=== PATIENT | male | born 1995 | race Two or more races ===

== ENCOUNTER 2023-01-22 09:54 | Emergency (ER) | payer MEDICAID ==
[~2023-01-22] VITALS: Ht 175.3 cm; Wt 90.7 kg
[2023-01-22 10:05] VITALS: BP 132/72; PULSE 74; RESP 16; O2SAT 99
[2023-01-22 10:30] VITALS: TEMP 98.6
[2023-01-22] MEDS ORDERED: ACETAMINOPHEN 325MG TABLET PO ONE (10:30)
[2023-01-22] MEDS ORDERED: ACET-2708 MT (10:36)
== END 2023-01-22 11:24 | disposition home or self-care (01) ==
LOC: ER 09:54
DX: S06.9XAA Unspecified intracranial injury with loss of consciousness status unknown, initial encounter (principal); V49.9XXA Car occupant (driver) (passenger) injured in unspecified traffic accident, initial encounter; Y93.89 Activity, other specified; Y92.89 Other specified places as the place of occurrence of the external cause; Y99.8 Other external cause status
CPT/HCPCS: 99282